=== PATIENT | female | born 1995 | race Caucasian/White ===

== ENCOUNTER 2017-01-26 02:52 | Emergency (ER) | payer OTHER ==
[~2017-01-26] VITALS: Ht 165.1 cm; Wt 113.4 kg
[~2017-01-26 02:52] MED LIST: BACTRIM DS 8001 TA1 PO; CLEOCIN HCL300 MG PO; DEPO PROVER150 MG/M1 IM; KEFLEX250 MG PO; PRENATAL VITAM1 EAC6 PO; PRILOSEC20 MG PO; REXULTI1 MG PO; TRAZODONE100 MG PO; VYVANSE50 MG PO; ZITHROMAX250 MG PO
[2017-01-26 03:08] VITALS: BP 116/74
[2017-01-26] MEDS ORDERED: CEPHALEXIN500 M1 PO (03:30)
== END 2017-01-26 03:46 | disposition home or self-care (01) ==
LOC: ED 02:52
DX: J40 Bronchitis, not specified as acute or chronic (principal); Z88.0 Allergy status to penicillin

== ENCOUNTER 2017-03-02 19:12 | Emergency (ER) | payer OTHER ==
[~2017-03-02] VITALS: Ht 165.1 cm; Wt 115.7 kg
[~2017-03-02 19:12] MED LIST changes: +CEPHALEXIN500 M1 PO
[2017-03-02 19:30] VITALS: BP 140/85
[2017-03-02] MEDS ORDERED: ANAPROX DS550 MG PO (19:58)
== END 2017-03-02 20:18 | disposition home or self-care (01) ==
LOC: ED 19:12
DX: M94.0 Chondrocostal junction syndrome [Tietze] (principal); J45.909 Unspecified asthma, uncomplicated; Z88.0 Allergy status to penicillin

== ENCOUNTER 2017-04-08 17:23 | Emergency (ER) | payer OTHER ==
[~2017-04-08] VITALS: Ht 165.1 cm; Wt 115.2 kg
[~2017-04-08 17:23] MED LIST changes: +ANAPROX DS550 MG PO
[2017-04-08 17:31] VITALS: BP 139/89
[2017-04-08 18:20] LABS: BASO % 0.2 % (0.0-1.0); EOS % 0.1 % (1.0-4.0); HEMATOCRIT 43.9 % (37.0-47.0); HEMOGLOBIN 14.7 g/dl (12.0-16.0); IG # 0.1 10*3/uL (0.0-0.1); LYMPH % 10.5 % (27.0-41.0); MEAN CELL VOLUME 84.7 fl (81.0-99.0); MEAN CORPUSCULAR HGB 28.4 pg (27.0-31.0); MEAN CORPUSCULAR HGB CONC 33.5 g/dl (33.0-37.0); MEAN PLATELET VOLUME 12.1 fl (9.6-12.3); MONO # 0.1 10*3/uL (0.1-1.0); MONO % 0.9 % (3.0-9.0); NEUT # 8.5 10*3/uL (2.3-7.9); NEUT % 87.8 % (47.0-73.0); PLATELET COUNT AUTOMATED 253 10*3/uL (130-400); RED BLOOD COUNT 5.18 10*6/uL (4.10-5.10); RED CELL DISTRI WIDTH 13.7 % (0-14.5); WHITE BLOOD COUNT 9.7 10*3/uL (4.8-10.8)
[2017-04-08 18:33] LABS: BUN 15 mg/dl (7-24); CARBON DIOXIDE 21 mmol/L (21-32); CHLORIDE 112 mmol/L (98-107); EST GLOM FILT AFRICAN AMERICAN > 60 ml/min; GLUCOSE 133 mg/dL (65-99); SODIUM 140 mmol/L (136-145)
== END 2017-04-08 18:56 | disposition home or self-care (01) ==
LOC: ED 17:23
PROVIDERS: Emergency Medicine
DX: N94.6 Dysmenorrhea, unspecified (principal); Z88.0 Allergy status to penicillin

== ENCOUNTER 2017-04-27 18:35 | Emergency (ER) | payer OTHER ==
[~2017-04-27] VITALS: Ht 165.1 cm; Wt 117.0 kg
[2017-04-27 18:51] VITALS: BP 133/80
[2017-04-27 19:33] LABS: BASO % 0.4 % (0.0-1.0); EOS # 0.2 10*3/uL (0.0-0.4); EOS % 1.8 % (1.0-4.0); HEMOGLOBIN 14.2 g/dl (12.0-16.0); LYMPH # 3.1 10*3/uL (1.3-4.4); LYMPH % 30.1 % (27.0-41.0); MEAN CELL VOLUME 87.3 fl (81.0-99.0); MEAN CORPUSCULAR HGB 28.2 pg (27.0-31.0); MEAN CORPUSCULAR HGB CONC 32.3 g/dl (33.0-37.0); MEAN PLATELET VOLUME 11.5 fl (9.6-12.3); MONO # 0.7 10*3/uL (0.1-1.0); MONO % 6.7 % (3.0-9.0); NEUT # 6.2 10*3/uL (2.3-7.9); NEUT % 60.8 % (47.0-73.0); PLATELET COUNT AUTOMATED 242 10*3/uL (130-400); RED BLOOD COUNT 5.04 10*6/uL (4.10-5.10); RED CELL DISTRI WIDTH 13.9 % (0-14.5); WHITE BLOOD COUNT 10.1 10*3/uL (4.8-10.8)
[2017-04-27 19:47] LABS: ALBUMIN 3.9 gm/dl (3.1-4.5); ALKALINE PHOSPHATASE 92 U/L (45-117); BILIRUBIN, TOTAL 0.2 mg/dl (0.2-1.0); BUN 19 mg/dl (7-24); C-REACTIVE PROTEIN 0.59 MG/DL (0-0.3); CARBON DIOXIDE 25 mmol/L (21-32); CHLORIDE 108 mmol/L (98-107); EST GLOM FILT AFRICAN AMERICAN > 60 ml/min; GLUCOSE 87 mg/dL (65-99); POTASSIUM 3.7 mmol/L (3.5-5.1); SGOT/AST 17 IU/L (3-35); SGPT/ALT 22 U/L (12-78); SODIUM 142 mmol/L (136-145)
[2017-04-27 19:56] LABS: BILIRUBIN NEGATIVE (NEGATIVE); BLOOD NEGATIVE (NEGATIVE); CLARITY CLEAR (CLEAR); COLOR YELLOW (YELLOW); GLUCOSE NEGATIVE (NEGATIVE); KETONE NEGATIVE (NEGATIVE); LEUKO ESTERASE NEGATIVE (NEGATIVE); NITRITE NEGATIVE (NEGATIVE); PH 5.5 (5.0-9.0); PROTEIN NEGATIVE (NEGATIVE); UROBILINOGEN 0.2 E.U./dl (0.2-1.0)
[2017-04-27 20:04] LABS: BACTERIA TRACE; EPITHELIAL CELLS 15-20; RBC 0-2 rbc/hpf (0-2); URINE REFLEX COMMENT NO (NO); WBC 0-2 wbc/hpf (0-5)
[2017-04-27 20:05] LABS: URINE AMPHETAMINES < 1000 (1000ng/ml); URINE BARBITURATES < 200 (200ng/ml); URINE COCAINE < 300 (300ng/ml)
[2017-04-27] MEDS ORDERED: Meclizine25 MG PO (20:25)
== END 2017-04-27 20:38 | disposition home or self-care (01) ==
LOC: ED 18:35
PROVIDERS: Emergency Medicine Emergency Medical Services
DX: R42 Dizziness and giddiness (principal); Z88.0 Allergy status to penicillin

== ENCOUNTER 2017-08-31 20:24 | Emergency (ER) | payer OTHER ==
[~2017-08-31] VITALS: Ht 165.1 cm; Wt 115.7 kg
[~2017-08-31 20:24] MED LIST changes: +Meclizine25 MG PO
[2017-08-31 20:35] VITALS: BP 143/87
[2017-08-31] MEDS ORDERED: KENALOG 0.1%80 GM T (21:11)
== END 2017-08-31 21:35 | disposition home or self-care (01) ==
LOC: ED 20:24
DX: L30.9 Dermatitis, unspecified (principal); Z88.0 Allergy status to penicillin

== ENCOUNTER 2017-12-12 09:52 | Emergency (ER) | payer OTHER ==
[~2017-12-12] VITALS: Wt 76.2 kg
[~2017-12-12 09:52] MED LIST changes: +KENALOG 0.1%80 GM T
[2017-12-12 09:59] VITALS: BP 142/76
[2017-12-12 10:20] LABS: BILIRUBIN NEGATIVE (NEGATIVE); BLOOD NEGATIVE (NEGATIVE); CLARITY CLEAR (CLEAR); COLOR YELLOW (YELLOW); GLUCOSE NEGATIVE (NEGATIVE); KETONE NEGATIVE (NEGATIVE); LEUKO ESTERASE TRACE (NEGATIVE); NITRITE NEGATIVE (NEGATIVE)
[2017-12-12] MEDS ORDERED: ZYRTEC10 MG PO (10:21)
[2017-12-12 10:26] LABS: BACTERIA TRACE; MUCOUS TRACE
== END 2017-12-12 10:34 | disposition home or self-care (01) ==
LOC: ED 09:52
PROVIDERS: Nurse Practitioner Family
DX: Z32.01 Encounter for pregnancy test, result positive (principal); R09.82 Postnasal drip; Z88.0 Allergy status to penicillin

== ENCOUNTER 2019-09-04 12:33 | Emergency (ER) | payer OTHER ==
[~2019-09-04] VITALS: Ht 165.1 cm; Wt 116.1 kg
[~2019-09-04 12:33] MED LIST changes: +ZOFRAN4 MG PO; +ZYRTEC10 MG PO
[2019-09-04 12:37] VITALS: BP 118/80
== END 2019-09-04 15:34 | disposition home or self-care (01) ==
LOC: ED 12:33
DX: J11.1 Influenza due to unidentified influenza virus with other respiratory manifestations (principal); J45.909 Unspecified asthma, uncomplicated; Z88.0 Allergy status to penicillin

== ENCOUNTER 2021-02-21 09:11 | Emergency (ER) | payer OTHER ==
[~2021-02-21] VITALS: Ht 165.1 cm; Wt 122.5 kg
[2021-02-21 09:14] VITALS: BP 107/80
[2021-02-21 10:29] LABS: BASO # 0.1 10*3/uL (0.0-0.1); BASO % 0.5 % (0.0-1.0); EOS # 0.1 10*3/uL (0.0-0.4); EOS % 1.3 % (1.0-4.0); HEMATOCRIT 44.1 % (37.0-47.0); LYMPH % 21.2 % (27.0-41.0); MEAN CORPUSCULAR HGB CONC 32.2 g/dl (33.0-37.0); MEAN PLATELET VOLUME 10.5 fl (9.6-12.3); MONO # 0.7 10*3/uL (0.1-1.0); MONO % 7.1 % (3.0-9.0); NEUT # 6.7 10*3/uL (2.3-7.9); NEUT % 69.7 % (47.0-73.0); PLATELET COUNT AUTOMATED 266 10*3/uL (130-400); RED BLOOD COUNT 5.25 10*6/uL (4.10-5.10); RED CELL DISTRI WIDTH 13.9 % (0-14.5); WHITE BLOOD COUNT 9.6 10*3/uL (4.8-10.8)
[2021-02-21 10:49] LABS: ALBUMIN 3.4 gm/dl (3.1-4.5); ALKALINE PHOSPHATASE 145 U/L (45-117); BUN 11 mg/dl (7-24); CHLORIDE 108 mmol/L (98-107); CREATININE 1.21 mg/dL (0.55-1.02); POTASSIUM 4.3 mmol/L (3.5-5.1); SGOT/AST 18 IU/L (3-35); SGPT/ALT 40 U/L (12-78); SODIUM 136 mmol/L (136-145); TOTAL PROTEIN 7.1 gm/dL (6.4-8.2)
[2021-02-21 10:53] LABS: BETA-HCG, QUANT < 1.0 mIU/mL (1-3)
[2021-02-21] MEDS ORDERED: Motrin,Rufen800 MG PO (11:45)
[2021-02-21] MEDS ORDERED: DOXYCYCLINE100 M3 PO (11:45)
[2021-02-21] MEDS ORDERED: HYDROCODONE-AC1 EAC1 PO (11:45)
== END 2021-02-21 11:58 | disposition home or self-care (01) ==
LOC: ED 09:11
PROVIDERS: Emergency Medicine
DX: L03.115 Cellulitis of right lower limb (principal); Z88.0 Allergy status to penicillin

== ENCOUNTER 2022-06-07 11:06 | Emergency (ER) | payer OTHER ==
[~2022-06-07] VITALS: Ht 165.1 cm; Wt 127.0 kg
[~2022-06-07 11:06] MED LIST changes: +DOXYCYCLINE100 M3 PO; +HYDROCODONE-AC1 EAC1 PO; +Motrin,Rufen800 MG PO
[2022-06-07 11:08] VITALS: BP 125/92
[2022-06-07 11:24] LABS: BILIRUBIN 2+ (Negative); BLOOD 2+ (Negative); CLARITY Turbid (Clear); GLUCOSE Negative (Negative); KETONE Negative (Negative); LEUKO ESTERASE 3+ (Negative); NITRITE Positive (Negative); SPECIFIC GRAVITY 1.025 (1.001-1.030); UROBILINOGEN 0.2 E.U./dl (0.0-1.0)
[2022-06-07 11:44] LABS: BASO # 0.1 10*3/uL (0.0-0.1); BASO % 0.4 % (0.0-1.0); EOS # 0.1 10*3/uL (0.0-0.4); EOS % 0.6 % (1.0-4.0); HEMATOCRIT 45.9 % (37.0-47.0); LYMPH # 2.4 10*3/uL (1.3-4.4); LYMPH % 20.7 % (27.0-41.0); MEAN CELL VOLUME 86.3 fl (81.0-99.0); MEAN CORPUSCULAR HGB 28.2 pg (27.0-31.0); MEAN CORPUSCULAR HGB CONC 32.7 g/dl (33.0-37.0); MEAN PLATELET VOLUME 10.9 fl (9.6-12.3); MONO # 0.7 10*3/uL (0.1-1.0); MONO % 6.1 % (3.0-9.0); NEUT # 8.3 10*3/uL (2.3-7.9); NEUT % 71.9 % (47.0-73.0); PLATELET COUNT AUTOMATED 284 10*3/uL (130-400); RED BLOOD COUNT 5.32 10*6/uL (4.10-5.10); RED CELL DISTRI WIDTH 14.4 % (0-14.5); WHITE BLOOD COUNT 11.5 10*3/uL (4.8-10.8)
[2022-06-07 11:51] LABS: COLOR Red (Yellow)
[2022-06-07 11:54] LABS: RBC TNTC rbc/hpf (0-2)
[2022-06-07 11:58] LABS: ALKALINE PHOSPHATASE 110 U/L (45-117); BUN 13 mg/dl (7-24); CHLORIDE 109 mmol/L (98-107); CREATININE 1.15 mg/dL (0.55-1.02); POTASSIUM 3.9 mmol/L (3.5-5.1); SGOT/AST 17 IU/L (3-35); SGPT/ALT 42 U/L (12-78); SODIUM 139 mmol/L (136-145); TOTAL PROTEIN 7.9 gm/dL (6.4-8.2)
[2022-06-07 12:03] LABS: BETA-HCG, QUANT < 1.0 mIU/mL (1-3)
[2022-06-07] MEDS ORDERED: SEPTDS PO (13:24)
== END 2022-06-07 13:40 | disposition home or self-care (01) ==
LOC: ED 11:06
PROVIDERS: Physician Assistant
DX: N93.8 Other specified abnormal uterine and vaginal bleeding (principal); N39.0 Urinary tract infection, site not specified; Z88.0 Allergy status to penicillin; Z79.2 Long term (current) use of antibiotics; Z79.899 Other long term (current) drug therapy

== ENCOUNTER 2022-10-27 11:41 | Emergency (ER) | payer OTHER ==
[~2022-10-27] VITALS: Ht 167.6 cm; Wt 127.0 kg
[~2022-10-27 11:41] MED LIST changes: +SEPTDS PO
[2022-10-27 11:52] VITALS: BP 123/77
[2022-10-27 12:19] LABS: BILIRUBIN Negative (Negative); BLOOD Negative (Negative); CLARITY Cloudy (Clear); COLOR Dark Yellow (Yellow); GLUCOSE Negative (Negative); KETONE Trace (Negative); LEUKO ESTERASE Trace (Negative); NITRITE Negative (Negative); PH 5.5 (4.5-8.0); SPECIFIC GRAVITY >= 1.030 (1.001-1.030)
[2022-10-27 12:40] LABS: BACTERIA 1+; MUCOUS 2+
[2022-10-27] MEDS ORDERED: MACRODANTIN100 M1 PO (14:14)
== END 2022-10-27 14:23 | disposition home or self-care (01) ==
LOC: ED 11:41
PROVIDERS: Internal Medicine
DX: O21.0 Mild hyperemesis gravidarum (principal); Z3A.09 9 weeks gestation of pregnancy; Z88.0 Allergy status to penicillin; R82.71 Bacteriuria

== ENCOUNTER → 2023-10-29 | Outpatient (CLI) | payer OTHER ==
[~2023-10-29] MED LIST changes: +MACRODANTIN100 M1 PO
[2023-10-29 09:27] LABS: BASO % 0.6 % (0.0-1.0); BILIRUBIN Negative (Negative); BLOOD Negative (Negative); CLARITY Clear (Clear); COLOR Yellow (Yellow); EOS # 0.2 10*3/uL (0.0-0.4); EOS % 2.7 % (1.0-4.0); GLUCOSE Negative (Negative); HEMATOCRIT 43.5 % (37.0-47.0); KETONE Negative (Negative); LEUKO ESTERASE Negative (Negative); LYMPH # 2.4 10*3/uL (1.3-4.4); LYMPH % 34.4 % (27.0-41.0); MEAN CELL VOLUME 85.3 fl (81.0-99.0); MEAN CORPUSCULAR HGB 26.7 pg (27.0-31.0); MEAN CORPUSCULAR HGB CONC 31.3 g/dl (33.0-37.0); MEAN PLATELET VOLUME 11.3 fl (9.6-12.3); MONO # 0.4 10*3/uL (0.1-1.0); MONO % 5.5 % (3.0-9.0); NEUT # 3.9 10*3/uL (2.3-7.9); NEUT % 56.5 % (47.0-73.0); NITRITE Negative (Negative); PLATELET COUNT AUTOMATED 255 10*3/uL (130-400); RED CELL DISTRI WIDTH 13.4 % (0-14.5); RETICULOCYTE % 1.32 % (0.50-2.50); SPECIFIC GRAVITY 1.015 (1.001-1.030); UROBILINOGEN 0.2 E.U./dl (0.0-1.0)
[2023-10-29 09:41] LABS: BACTERIA 1+; WBC 0-2 wbc/hpf (0-5)
[2023-10-29 10:15] LABS: ALKALINE PHOSPHATASE 103 U/L (46-116); BUN 13 mg/dl (9-23); CHLORIDE 106 mmol/L (98-107); CHOLESTEROL 153 mg/dL (<200); GAMMA GLUTAMYL TRANSPEPTIDASE 14 U/L (0-73); LDL CHOLESTEROL 81 mg/dL (9-159); POTASSIUM 4.3 mmol/L (3.4-5.1); SGPT/ALT 13 U/L (5-49); T3 UPTAKE 25.5 % (22.4-36.7); THYROXINE (T4) TOTAL 7.4 ug/dl (4.5-10.9); TOTAL PROTEIN 7.3 gm/dL (6.0-8.0); TRIGLYCERIDES 102 mg/dl (<150); URIC ACID 4.6 mg/dL (3.1-7.8)
[2023-10-30 13:06] LABS: ANTI-DSDNA ANTIBODIES 1 IU/mL (0-9)
== END | disposition home or self-care (01) ==
LOC: LAB 09:08
PROVIDERS: ATTEND Family Medicine
DX: E78.5 Hyperlipidemia, unspecified (principal); E55.9 Vitamin D deficiency, unspecified; R79.89 Other specified abnormal findings of blood chemistry; R53.83 Other fatigue; R74.8 Abnormal levels of other serum enzymes

== ENCOUNTER → 2024-08-10 | Outpatient (CLI) | payer OTHER | END | disposition home or self-care (01) | LOC: LAB 16:37 | PROVIDERS: ATTEND Nurse Practitioner Psychiatric/Mental Health | DX: Z51.81 Encounter for therapeutic drug level monitoring (principal); Z79.899 Other long term (current) drug therapy ==